=== PATIENT | male | born 2000 | race Caucasian/White ===

== ENCOUNTER 2020-03-03 10:00 | Emergency (ER) | payer BC ==
[~2020-03-03] VITALS: Ht 160 cm; Wt 49.3 kg
[2020-03-03] MEDS ORDERED: SODIUM CHLORIDE 0.9% 1,000 ML IV ONE (10:33)
[2020-03-03] MEDS ORDERED: ONDANSETRON 2MG/ML, 2ML ONE (10:39)
[2020-03-03] MEDS ORDERED: LORazepam 2 MG/ML, 1ML ONE (10:40)
--- NOTE | 2020-03-03 10:58 | NUR ---
Assumed care of patient. C/O ABD pain, N/V/D, and scant blood in stool. Patient very anxious in ED and reports hx of anxiety, but not taking any medication. IV started, labs drawn, NS hung, and meds admin. RN encouraged breathign exercises for anxiety. Ambulated with a steady gait to the restroom to collect UA. UA sent to lab. Will continue to monitor.
[2020-03-03] MEDS ORDERED: LORazepam 2 MG/ML, 1ML IVPush ONE (11:00)
[2020-03-03] MEDS ORDERED: SODIUM CHLORIDE FLUSH 10ML SYR IVF ONE (11:00)
[2020-03-03] MEDS ORDERED: ONDANSETRON 2MG/ML, 2ML IVPush ONE (11:00)
[2020-03-03] MEDS ORDERED: SODIUM CHLORIDE 0.9% 1,000ML IVBOLUS ONE (11:00)
[2020-03-03 11:04] LABS: BASOPHILS # (AUTO) 0.03 x10^3/uL (0-0.3); BASOPHILS % (AUTO) 0 % (0-1); EOSINOPHILS # (AUTO) 0.07 x10^3/uL (0-0.8); EOSINOPHILS % (AUTO) 1 % (1-7); LYMPHOCYTES # (AUTO) 1.59 x10^3/uL (1-6.1); LYMPHOCYTES % (AUTO) 17 % (22-44); MD NO; MEAN CORPUSCULAR HEMOGLOBIN 30.1 pg (27.5-34.5); MEAN CORPUSCULAR HGB CONC 33.6 g/dL (33.2-36.2); MEAN CORPUSCULAR VOLUME 89.7 fL (81-97); MEAN PLATELET VOLUME 7.1 fL (7.4-10.4); MONOCYTES # (AUTO) 0.65 x10^3/uL (0-1.4); MONOCYTES % (AUTO) 7 % (2-9); NEUTROPHILS # (AUTO) 7.03 x10^3/uL (1.8-8.0); NEUTROPHILS % (AUTO) 75 % (42-75); PLATELET COUNT 303 x10^3/uL (130-400); RED BLOOD COUNT 5.28 x10^6/uL (4.38-5.82); RED CELL DISTRIBUTION WIDTH 13.1 % (9.4-14.8)
[2020-03-03 11:06] LABS: MICROSCOPIC NOT IND
[2020-03-03 11:15] LABS: ALANINE AMINOTRANSFERASE 16 U/L (12-78); ALBUMIN 4.8 g/dL (3.4-5.0); ANION GAP 5 mmol/L (5-15); CALCIUM 9.3 mg/dL (8.5-10.1); CHLORIDE 108 mmol/L (98-107); CREATININE 0.81 mg/dL (0.7-1.3)
[2020-03-03 11:17] LABS: ALKALINE PHOSPHATASE 69 U/L (45-117); BILIRUBIN,TOTAL 0.8 mg/dL (0.2-1.0)
--- NOTE | 2020-03-03 11:55 | NUR ---
Patient to CT. Remains slightly tachycardic, but reports decreased anxiety.
[2020-03-03] MEDS ORDERED: OMNIPAQUE 350 MG/ML, 100ML BOTTLE ONE (12:01)
--- NOTE | 2020-03-03 13:28 | NUR ---
Patient/Caregiver given discharge instructions and they have confirmed that they understand the instructions. Patient ambulatory with steady gait.
[2020-03-03 13:29] VITALS: BP 129/79
== END 2020-03-03 13:29 | disposition home or self-care (01) ==
LOC: ED 11:11
DX: A08.4 Viral intestinal infection, unspecified (principal); F41.1 Generalized anxiety disorder; R10.9 Unspecified abdominal pain; K92.1 Melena
CPT/HCPCS: 36415; 74177; 80053; 81003; 83605; 83690; 85025; 96374; 96375; 99285; J2060; J2405; J7030; Q9967